=== PATIENT | female | born 1955 | race African-American/Black ===

== ENCOUNTER 2021-01-17 22:26 | Emergency (ER) | payer OTHER ==
[~2021-01-17] VITALS: Ht 172.7 cm; Wt 78.9 kg
[2021-01-17 23:01] LABS: URINE BILIRUBIN NEGATIVE (Negative); URINE BLOOD 2+ (Negative); URINE CLARITY CLEAR; URINE COLOR YELLOW; URINE GLUCOSE-RANDOM* NEGATIVE (Negative); URINE KETONES NEGATIVE (Negative); URINE NITRITE-REFLEX NEGATIVE (Negative); URINE PROTEIN (DIPSTICK) NEGATIVE (Negative); URINE SPECIFIC GRAVITY <= 1.005 (1.005-1.035); URINE UROBILINOGEN 0.2 E.U./dl (0.2-1.0)
[2021-01-17 23:03] LABS: URINE LEUKOCYTES-REFLEX 3+ (Negative)
[2021-01-17 23:38] LABS: BACTERIA-REFLEX None Seen /HPF (None Seen); CASTS None Seen /LPF (None Seen); CRYSTALS None Seen /LPF (None Seen); MUCUS 0-3 Light strn/LPF (None Seen); SQUAMOUS 0-3 Few /LPF (0-3); URINE RBC 1-2 Rare /HPF (NONE SEEN); URINE WBC-REFLEX 0-5 Rare /HPF (0-5)
[2021-01-17 23:52] LABS: ABSOLUTE NEUTROPHILS 1.5 thou/uL (1.4-8.2); BASOPHILS 0.7 % (0.0-2.0); EOSINOPHILS 3.6 % (0.0-3.0); HEMATOCRIT 35.6 % (37.0-47.0); HEMOGLOBIN 11.6 gm/dL (12.0-15.0); MCH 29.2 pg (26.0-34.0); MCHC 32.6 g/dL (28.0-37.0); MCV 89.7 fL (80.0-100.0); MONOCYTES 16.8 % (1.0-8.0); PLATELET COUNT 279 thou/uL (150-400); POLYS 36.9 % (36.0-66.0); RBC 3.97 mil/uL (4.20-5.00); RDW 13.9 % (10.5-14.5); WBC 4.1 thou/uL (4.0-11.0)
[2021-01-17 23:55] LABS: CALCIUM 9.1 mg/dL (8.5-10.1); CREATININE 1.5 mg/dL (0.6-1.0)
[2021-01-18] MEDS ORDERED: MACROBID 100 M100 M1 PO (02:33)
[2021-01-18 03:03] VITALS: BP 125/77
== END 2021-01-18 03:04 | disposition home or self-care (01) ==
LOC: ER 22:26
PROVIDERS: Student in an Organized Health Care Education/Training Program
DX: R31.9 Hematuria, unspecified (principal); I48.91 Unspecified atrial fibrillation; N18.9 Chronic kidney disease, unspecified

== ENCOUNTER 2021-05-12 16:42 | Emergency (ER) | payer OTHER ==
[~2021-05-12] VITALS: Ht 172.7 cm; Wt 79.8 kg
[~2021-05-12 16:42] MED LIST: MACROBID 100 M100 M1 PO
[2021-05-12 17:56] LABS: ABSOLUTE NEUTROPHILS 1.9 thou/uL (1.4-8.2); BASOPHILS 1.8 % (0.0-2.0); EOSINOPHILS 4.5 % (0.0-3.0); HEMATOCRIT 37.9 % (37.0-47.0); HEMOGLOBIN 12.2 gm/dL (12.0-15.0); LYMPHOCYTES 34.5 % (24.0-44.0); MCH 29.5 pg (26.0-34.0); MCHC 32.3 g/dL (28.0-37.0); MCV 91.3 fL (80.0-100.0); MONOCYTES 9.8 % (1.0-8.0); PLATELET COUNT 296 thou/uL (150-400); POLYS 49.4 % (36.0-66.0); RBC 4.14 mil/uL (4.20-5.00); RDW 13.9 % (10.5-14.5); WBC 3.9 thou/uL (4.0-11.0)
[2021-05-12 18:00] LABS: CALCIUM 9.4 mg/dL (8.5-10.1); CREATININE 1.3 mg/dL (0.6-1.0); POTASSIUM 4.5 mmol/L (3.5-5.1)
[2021-05-12 18:07] LABS: ALBUMIN 3.7 g/dL (3.4-5.0); TOTAL BILIRUBIN 0.9 mg/dL (0.2-1.0); TOTAL PROTEIN 7.4 g/dL (6.4-8.2)
[2021-05-12] MEDS ORDERED: LACTULOSE PO (19:08)
[2021-05-12 19:19] VITALS: BP 133/72
== END 2021-05-12 19:30 | disposition home or self-care (01) ==
LOC: ER 16:42
PROVIDERS: Nurse Practitioner
DX: K64.4 Residual hemorrhoidal skin tags (principal); K59.00 Constipation, unspecified; I48.91 Unspecified atrial fibrillation

== ENCOUNTER 2021-07-02 00:57 | Emergency (ER) | payer OTHER ==
[~2021-07-02] VITALS: Ht 172.7 cm; Wt 80.7 kg
[~2021-07-02 00:57] MED LIST changes: +LACTULOSE PO
[2021-07-02 01:18] VITALS: BP 131/77
[2021-07-02] MEDS ORDERED: XARELTO20 MG PO (01:23)
[2021-07-02] MEDS ORDERED: [UNRECOGNIZED DRUG - OTHER] (01:24)
[2021-07-02] MEDS ORDERED: TENORMIN25 MG PO (01:24)
[2021-07-02 02:56] LABS: BASOPHILS 1.5 % (0.0-2.0); EOSINOPHILS 5.1 % (0.0-3.0); HEMATOCRIT 35.5 % (37.0-47.0); HEMOGLOBIN 11.7 gm/dL (12.0-15.0); LYMPHOCYTES 49.3 % (24.0-44.0); MCH 29.5 pg (26.0-34.0); MCV 89.6 fL (80.0-100.0); MONOCYTES 13.1 % (1.0-8.0); PLATELET COUNT 286 thou/uL (150-400); RBC 3.97 mil/uL (4.20-5.00); RDW 13.4 % (10.5-14.5); WBC 3.4 thou/uL (4.0-11.0)
== END 2021-07-02 03:21 | disposition home or self-care (01) ==
LOC: ER 00:57
PROVIDERS: Emergency Medicine
DX: K91.840 Postprocedural hemorrhage of a digestive system organ or structure following a digestive system procedure (principal); I48.91 Unspecified atrial fibrillation; Z79.899 Other long term (current) drug therapy